=== PATIENT | female | born 1975 | race Caucasian/White ===

== ENCOUNTER 2020-11-05 13:29 | Emergency (ER) | payer SELFPAY ==
[2020-11-05 13:34] VITALS: BP 117/71; PULSE 108; RESP 18; TEMP 36.6; O2SAT 100
[2020-11-05 13:47] VITALS: BP 121/73; PULSE 101; RESP 17; O2SAT 99
--- NOTE | 2020-11-05 15:10 | PC.NURSE ---
provider and RN went to see pt in room, unable to find her left w/o being seen charge lpn aware
== END 2020-11-05 15:10 | disposition left against medical advice (07) ==
DX: S09.90XA Unspecified injury of head, initial encounter (principal)
CPT/HCPCS: 99199

== ENCOUNTER 2020-12-29 21:57 | Emergency (ER) | payer OTHER, SELFPAY ==
--- NOTE | ~2020-12-29 | XR_ITS ---
EXAMINATION: XR chest 1V portable EXAM DATE: 12/30/2020 00:06 INDICATION: Cough, shortness of breath. TECHNIQUE: Portable AP frontal chest x-ray was obtained. There is no prior study for comparison. FINDINGS: Scattered lung granulomata. The lungs are clear. There are no pleural effusions. The card iomediastinal silhouette is within normal limits. There is no pneumothorax suspected. The bones and soft tissues are unremarkable. IMPRESSION: No acute cardiopulmonary findings. Reviewed, dictated and finalized at location A.
[2020-12-29 22:23] VITALS: BP 99/74; PULSE 115; RESP 20; TEMP 36.2; O2SAT 98
[2020-12-29 23:57] VITALS: BP 104/73; PULSE 96; RESP 19; O2SAT 100
[2020-12-30 00:01] VITALS: RESP 20; O2SAT 98
--- NOTE | 2020-12-30 00:04 | ED.GENADULT ---
HPI - General Adult General Chief complaint: Unspecified Stated complaint: fever, covid exposure Time Seen by Provider: 12/29/20 23:45 Source: RN notes reviewed History of Present Illness HPI narrative: Patient presents emergency department from home for COVID-19 exposure. Patient states that both her sister and brother tested positive for Covid 2 days ago. Patient states she is been feeling under the weather for the past week but is over the past several days developed a cough has been nonproductive she denies any measured fever but does report subjective fever does note rhinorrhea denies any chest pain shortness of breath abdominal pain nausea vomiting or any other symptoms Related Data Allergies Allergy/AdvReac Type Severity Reaction Status Date / Time tramadol AdvReac Unknown HALLUCINATI Verified 12/29/20 22:26 ONS varenicline AdvReac Unknown HALLUCINATI Verified 12/29/20 22:26 ONS Review of Systems Review of Systems: Narrative: Gen.: Subjective fever Eyes: Denies eye pain or visual change ENT: Reports rhinorrhea Respiratory: Denies shortness of breath reports cough CV: Denies chest pain or palpitations GI: Denies abdominal pain nausea, emesis or diarrhea Musculoskeletal: Denies back pain or muscle pain Neuro: Denies numbness, tingling, weakness or focal weakness Skin: Denies rash Except as documented, all other systems reviewed and negative PMFSH Past Medical History Medical History (Updated 12/30/20 @ 00:23 by Toño Moreno DO) Lupus Social History Social History Smoking packs per day: 1 Smoking cigarettes per day: 20.0 Smoking status: Current every day smoker Alcohol intake: never Substance use: never Exam Narrative: Exam Narrative: APPEARANCE: No acute distress, nontoxic, resting in bed EYES: EOMI HEENT: Normocephalic, atraumatic, TMs clear bilaterally, nares patent or mucosa moist no erythema exudate posterior pharynx RESPIRATORY: No respiratory distress Clear to auscultation bilaterally with no rhonchi wheezing or rales. CARDIOVASCULAR: Regular rate and rhythm without murmurs rubs or gallops. ABDOMINAL: Soft, nontender, nondistended, no rebound or guarding MUSCULOSKELETAl: Moves all extremities. NEURO: Awake and alert. Following commands, speech normal, no focal deficits SKIN:: Warm, dry. No rashes lesions or abrasions PSYCHIATRIC: Normal affect/mood, Course Course Emergency Course: Discussed with patient results of workup and diagnosis. Discussed need for follow-up with primary care, proper use of medication, and reasons to return to the emergency department. Patient understands and agrees to current treatment plan Vital Signs Vital signs: Vital Signs Temperature 97.1 F L 12/29/20 22:23 Pulse Rate 115 H 12/29/20 22:23 Respiratory Rate 20 12/29/20 22:23 Blood Pressure 99/74 L 12/29/20 22:23 Pulse Oximetry 98 12/29/20 22:23 Temperature 98.0 F 12/30/20 00:16 Pulse Rate 96 12/29/20 23:57 Respiratory Rate 20 12/30/20 00:01 Blood Pressure 104/73 12/29/20 23:57 Pulse Oximetry 98 12/30/20 00:01 Medical Decision Making Vital Signs Vital Signs: Vital Signs Temperature 97.1 F L 12/29/20 22:23 Pulse Rate 115 H 12/29/20 22:23 Respiratory Rate 20 12/29/20 22:23 Blood Pressure 99/74 L 12/29/20 22:23 Pulse Oximetry 98 12/29/20 22:23 Temperature 98.0 F 12/30/20 00:16 Pulse Rate 96 12/29/20 23:57 Respiratory Rate 20 12/30/20 00:01 Blood Pressure 104/73 12/29/20 23:57 Pulse Oximetry 98 12/30/20 00:01 Imaging Data Attestation: I personally reviewed and interpreted this imaging study as follows: My impression: Chest x-ray reviewed by myself shows no acute process ECG Data EKG #1: Interpretation: Sinus rhythm 94, MT is normal, axis normal, QTC is normal, ST segments normal Discharge Plan Discharge Clinical Impression: Contact with and (suspected) exp
--- NOTE | 2020-12-30 00:12 | ECG_ITS ---
Measurements Intervals Holman Rate: 94 P: 66 TN: 154 QRS: 66 QRSD: 80 T: 68 QT: 353 QTc: 443 Interpretive Statements SINUS RHYTHM NORMAL ECG Electronically Signed On 12-30-2020 8:34:29 CDT by Julius Duncan D.O.
[2020-12-30 00:16] VITALS: TEMP 36.7
[2020-12-30 00:55] VITALS: BP 113/74; PULSE 78; RESP 14; O2SAT 98
[2020-12-30 19:42] LABS: SARS-CoV-2 RNA PCR Negative
== END 2020-12-30 00:55 | disposition home or self-care (01) ==
PROVIDERS: Emergency Provider Emergency Medicine; PCP Family Medicine
DX: R05 Cough (principal); J34.89 Other specified disorders of nose and nasal sinuses; Z20.822 Contact with and (suspected) exposure to COVID-19; F17.220 Nicotine dependence, chewing tobacco, uncomplicated
CPT/HCPCS: 71045; 93005; 99283; C9803; U0003; U0005

== ENCOUNTER 2021-04-09 04:20 | Emergency (ER) | payer SELFPAY ==
--- NOTE | ~2021-04-09 | XR_ITS ---
EXAMINATION: XR foot LT min 3V DATE: 04/09/2021 04:41 INDICATION: Left great toe pain. Possible foreign body. TECHNIQUE: Dorsoplantar, two oblique and lateral views of the left foot were obtained. COMPARISON: None. FINDINGS: Alignment is normal. No fracture. Minimal osteoarthritis at the first metatarsophalangeal and the few of the tarsal metatarsal joints. No left ankle joint effusion. Small Achilles calcaneal spur. Soft t issues are unremarkable. No radiopaque foreign bodies. IMPRESSION: 1. No acute osseous abnormality or radiopaque foreign body. Reviewed, dictated and finalized at location A.
[2021-04-09 04:25] VITALS: BP 109/82; PULSE 110; RESP 19; TEMP 36.2; O2SAT 100
[2021-04-09 04:42] VITALS: BP 119/83; PULSE 106; RESP 20; O2SAT 100
--- NOTE | 2021-04-09 04:48 | ED.GENADULT ---
HPI - General Adult General Chief complaint: Extremity Injury, Lower Stated complaint: Pain to left big toe Time Seen by Provider: 04/09/21 04:30 History of Present Illness HPI narrative: Patient is a 45-year-old female presents the emergency department with chief complaint of left great toe pain. The patient reports that yesterday she was walking barefoot and thinks she stepped on something and has pain base of the first digit of her left foot. The patient states is between the metatarsal and the proximal phalanx. Patient reports he feels as though there is a foreign body in her foot as though she stepped on a nail or a screw. Patient reports there is a small puncture wound and noticed that there is some bruising present on the dorsum of her foot. Patient states there is pain with range of motion reports that she cannot put weight on the foot. Patient denies fever denies red streaking. Related Data Allergies Allergy/AdvReac Type Severity Reaction Status Date / Time tramadol AdvReac Unknown HALLUCINATI Verified 04/09/21 04:46 ONS varenicline AdvReac Unknown HALLUCINATI Verified 04/09/21 04:46 [facility] Past Medical History Medical History (Updated 04/09/21 @ 04:52 by Eloy Casillas MD) Lupus Social History Social History Smoking packs per day: 1 Smoking cigarettes per day: 20.0 Smoking status: Current every day smoker Alcohol intake: never Substance use: never Gender identity (if verbalized by the patient): Female Exam Narrative: Exam Narrative: GENERAL: Well-appearing, well-nourished, and in no acute distress. HEAD: Normocephalic, atraumatic. EYES: PERRLA and EOMI. ENT: Nares clear, no rhinorrhea or epistaxis. Mucous membranes moist. NECK: Supple. CHEST: Clear to auscultation. No respiratory distress. HEART: Regular rate and rhythm. No murmur heard. Normal peripheral pulses. ABDOMEN: Soft, nontender, nondistended, normal active bowel sounds. EXTREMITIES: Normal range of motion. No edema. There is a small puncture wound at the base of the left great toe at the MCP joint. There is tenderness to palpation there is no erythema there is no fluctuance SKIN: Warm, dry, no rash. NEURO: No focal deficits. Alert and oriented x3. PSYCH: Normal mood and affect. Course Vital Signs Vital signs: Vital Signs Temperature 36.2 C L 04/09/21 04:25 Pulse Rate 110 H 04/09/21 04:25 Respiratory Rate 19 04/09/21 04:25 Blood Pressure 109/82 04/09/21 04:25 Pulse Oximetry 100 04/09/21 04:25 Temperature 36.2 C L 04/09/21 04:25 Pulse Rate 106 H 04/09/21 04:42 Respiratory Rate 20 04/09/21 04:42 Blood Pressure 119/83 04/09/21 04:42 Pulse Oximetry 100 04/09/21 04:42 Medical Decision Making Vital Signs Vital Signs: Vital Signs Temperature 36.2 C L 04/09/21 04:25 Pulse Rate 110 H 04/09/21 04:25 Respiratory Rate 04/09/21 04:25 Blood Pressure 109/82 04/09/21 04:25 Pulse Oximetry 100 04/09/21 04:25 Temperature 36.2 C L 04/09/21 04:25 Pulse Rate 106 H 04/09/21 04:42 Respiratory Rate 20 04/09/21 04:42 Blood Pressure 119/83 04/09/21 04:42 Pulse Oximetry 100 04/09/21 04:42 Discharge Plan Discharge Clinical Impression: Puncture wound of foot Qualifiers: Encounter type: initial encounter Laterality: left Qualified Code(s): S91.332A - Puncture wound without foreign body, left foot, initial encounter Patient Disposition: Home, Self-Care Condition: Stable Instructions: Antibiotic Form, Soft Tissue Foreign Body (ED), Puncture Wound in the Foot (ED) Additional Instructions: The x-ray did not show any large foreign body. Please follow-up with podiatry for reevaluation and reassessment Prescriptions: New hydrocodone-acetaminophen 5-325 mg tablet 1 tablet PO Q6H PRN (Reason: pain) 3 Days Qty: 12 RF: 0 sulfamethoxazole-trimethoprim [Bactrim DS] 800-160 mg tablet
[2021-04-09] MEDS: HYDROcodone/acetaminophen (*CRX) 5-325 MG TABLET 1 TAB PO (04:59)
[2021-04-09 05:29] VITALS: BP 129/89; PULSE 99; RESP 18; O2SAT 100
== END 2021-04-09 05:30 | disposition home or self-care (01) ==
LOC: ANHED 05:07
PROVIDERS: Emergency Provider Emergency Medicine
DX: S91.332A Puncture wound without foreign body, left foot, initial encounter (principal); F17.210 Nicotine dependence, cigarettes, uncomplicated; W26.9XXA Contact with unspecified sharp object(s), initial encounter
CPT/HCPCS: 73630; 99283; A9270

== ENCOUNTER 2021-05-18 05:42 | Emergency (ER) | payer SELFPAY ==
--- NOTE | ~2021-05-18 | XR_ITS ---
EXAMINATION: XR humerus LT, XR humerus RT DATE: 05/18/2021 06:27 INDICATION: Bilateral biceps pain with injury one year prior on the right. TECHNIQUE: 1. Internal and axillary rotated views of the left humerus were obtained. 2. Internal and external rotated views of the right humerus were obtained. COMPARISON: None. FINDINGS: Alignment is normal at the bilateral shoulders and elbows. No acute fractures identified. Old healed posterolateral left ninth rib fracture. Minimal to mild osteoarthritis at the bilateral elbow and acr omioclavicular joints. Calcified nodule in the right lung consistent with old granulomatous disease. IMPRESSION: 1. No acute osseous abnormality at either the left or right upper arms. Reviewed, dictated and finalized at location A. IMPRESSION: 1. No acute osseous abnormality at either the left or right upper arms.
[2021-05-18 05:46] VITALS: BP 142/101; PULSE 110; RESP 20; TEMP 36.7; O2SAT 100
[2021-05-18] MEDS: HYDROcodone/acetaminophen (*CRX) 5-325 MG TABLET 1 TAB PO (06:12)
[2021-05-18 06:17] LABS: Basophils Absolute Auto 0.1 K/mm3 (0.0-0.1); Basophils Percent Auto 0.7 % (0.2-1.2); Eosinophils Absolute Auto 0.2 K/mm3 (0-0.3); Eosinophils Percent Auto 2.1 % (0-4.4); Hematocrit 40.2 % (37.0-47.0); Hemoglobin 13.6 g/dL (12.0-15.0); Immature Granulocyte Absolute 0.02 K/mm3 (0.00-0.031); Immature Granulocyte Percent A 0.2 % (0-0.5); Lymphocytes Absolute Auto 4.14 K/mm3 (0.9-3.2); Lymphocytes Percent Auto 38.7 % (18.3-44.2); Mean Corpuscular HGB Conc 33.8 g/dl (32-36); Mean Corpuscular Hemoglobin 29.9 pg (26-34); Mean Corpuscular Volume 88.4 fl (80-100); Mean Platelet Volume 10.5 fl (7.4-10.4); Monocytes Absolute Auto 0.6 K/mm3 (0.1-0.6); Monocytes Percent Auto 5.7 % (2.6-8.5); Neutrophils Absolute Auto 5.6 K/mm3 (1.3-6.7); Neutrophils Percent Auto 52.6 % (45.5-73.1); Platelet Count Result 286 k/mm3 (150-375); Red Blood Count 4.55 M/mm3 (4.2-5.4); Red Cell Distribution Width 11.9 % (11.5-14.5); White Blood Count 10.7 K/mm3 (4.5-10.0)
[2021-05-18 06:37] LABS: Alanine Aminotransferase 20 U/L (4-35); Alkaline Phosphatase 135 U/L (38-126); Anion Gap 9 mmol/L (8-16); Aspartate Amino Transferase 20 U/L (14-36); Bilirubin,Total 0.4 mg/dL (0.2-1.3); Blood Urea Nitrogen 11 mg/dL (7-17); Calcium 9.2 mg/dL (8.4-10.2); Carbon Dioxide 25 mmol/L (22-30); Chloride 102 mmol/L (98-107); Creatine Kinase 47 U/L (30-135); Estimated Glomerular Filt Rate > 60; Glucose 345 mg/dL (65-110); Sodium 136 mmol/L (137-145)
[2021-05-18 06:53] VITALS: BP 130/87; PULSE 100; RESP 20; TEMP 36.1; O2SAT 100
--- NOTE | 2021-05-18 06:58 | ED.GENADULT ---
HPI - General Adult General Chief complaint: Extremity Injury, Upper Stated complaint: bilat arm pain Time Seen by Provider: 05/18/21 05:55 Source: RN notes reviewed History of Present Illness HPI narrative: Patient presents to emergency department from home for bilateral biceps pain. Patient states that she ruptured her right biceps tendon approximately 1 year ago but could not afford to get it fixed she states that she has had pain in that right bicep since that time that is worse over the past week states that with this she is also had pain in her left bicep during this time she states that it hurts worse to flex her bilateral biceps she denies any pain in her elbows or shoulder she denies any pain in her forearms or wrists patient denies any new direct trauma or injury she states that she has not taken anything for pain at home she denies any chest pain shortness of breath fevers numbness or tingling of the extremity Related Data Allergies Allergy/AdvReac Type Severity Reaction Status Date / Time tramadol AdvReac Unknown HALLUCINATI Verified 05/18/21 05:50 ONS varenicline AdvReac Unknown HALLUCINATI Verified 05/18/21 05:50 ONS Review of Systems Review of Systems: Gen.: Denies fevers or chills ENT: Denies congestion Respiratory: Denies shortness of breath or cough CV: Denies chest pain or palpitations GI: Denies abdominal pain nausea, emesis Musculoskeletal: See HPI Neuro: Denies numbness, tingling, weakness or focal weakness Skin: Denies rash Except as documented, all other systems reviewed and negative [facility] Past Medical History Medical History (Updated 05/18/21 @ 07:05 by Toño Moreno DO) Diabetes mellitus Lupus Social History Social History Smoking packs per day: 1 Smoking cigarettes per day: 20.0 Smoking status: Current every day smoker Alcohol intake: never Substance use: never Gender identity (if verbalized by the patient): Female Exam Narrative: APPEARANCE: No acute distress, nontoxic, resting in bed EYES: EOMI HEENT: Normocephalic, atraumatic, RESPIRATORY: No respiratory distress Clear to auscultation bilaterally with no rhonchi wheezing or rales. CARDIOVASCULAR: Regular rate and rhythm without murmurs rubs or gallops. ABDOMINAL: Soft, nontender, MUSCULOSKELETAl: Moves all extremities. No clubbing, cyanosis or edema. Bilateral radial pulse 2+, tender to palpation over the right biceps muscle in the region of the biceps tendon pain with flexion of the right bicep there is no tenderness of the right elbow or shoulder there is no overlying erythema or signs of infection, tender palpation of the left bicep worse with flexion no tenderness left shoulder or elbow, no overlying erythema or signs of infection NEURO: Awake and alert. Following commands, speech normal, no focal deficits SKIN:: Warm, dry. No rashes lesions or abrasions PSYCHIATRIC: Normal affect/mood, Const: General: poor hygiene Course Course Emergency Course: I discussed with patient her blood sugar she states she is a diabetic but has not been able to afford her insulin discussed with her I would refer her to primary care physician Discussed with patient results of workup and diagnosis. Discussed need for follow-up with primary care, proper use of medication, and reasons to return to the emergency department. Patient understands and agrees to current treatment plan Vital Signs Vital signs: Vital Signs Temperature 98.0 F 05/18/21 05:46 Pulse Rate 110 H 05/18/21 05:46 Respiratory Rate 20 05/18/21 05:46 Blood Pressure 142/101 H 05/18/21 05:46 Pulse Oximetry 100 05/18/21 05:46 Temperature 97.0 F L 05/18/21 06:53 Pulse Rate 100 05/18/21 06:53 Respiratory Rate 20 05/18/21 06:53 Blood Pressure 130/87 05/18/21 06:53 Pulse Oximetry 100 05/18/21 06:53 Medical Decision Making Vital Signs Vital Signs: Vital Signs Temperature 98
== END 2021-05-18 07:15 | disposition home or self-care (01) ==
PROVIDERS: Emergency Provider Emergency Medicine
DX: S46.212A Strain of muscle, fascia and tendon of other parts of biceps, left arm, initial encounter (principal); S46.211A Strain of muscle, fascia and tendon of other parts of biceps, right arm, initial encounter; E11.9 Type 2 diabetes mellitus without complications; F17.220 Nicotine dependence, chewing tobacco, uncomplicated; X58.XXXA Exposure to other specified factors, initial encounter; Z91.120 Patient's intentional underdosing of medication regimen due to financial hardship; T38.3X6A Underdosing of insulin and oral hypoglycemic [antidiabetic] drugs, initial encounter
CPT/HCPCS: 36415; 73060; 80053; 82550; 85025; 99284; A4565; A9270

== ENCOUNTER 2021-06-09 19:13 | Emergency (ER) | payer SELFPAY ==
[2021-06-09 19:42] VITALS: BP 124/82; PULSE 116; RESP 16; TEMP 37; O2SAT 100
--- NOTE | 2021-06-09 22:00 | PC.NURSE ---
Pt walking out with granddaughter who is also being seen. States she is taking her home to eat dinner then they will be back. Pt told that if they leave they will have to check back in when they come back and will be removed from the list at this time.
== END 2021-06-10 04:24 | disposition left against medical advice (07) ==
DX: R50.9 Fever, unspecified (principal)
CPT/HCPCS: 99199

== ENCOUNTER 2021-07-02 08:02 | Emergency (ER) | payer SELFPAY ==
[2021-07-02 08:20] VITALS: BP 120/76; PULSE 90; RESP 17; TEMP 36.7; O2SAT 99
--- NOTE | 2021-07-02 09:37 | ED.EAR ---
HPI - Ear Problem General Chief complaint: Ear Stated complaint: right ear pain, wants covid test Time Seen by Provider: 07/02/21 09:07 Source: patient Mode of arrival: ambulatory Limitations: no limitations History of Present Illness HPI Narrative: This is a 46-year-old female that presents to the emergency department for right ear pain present over the last couple of weeks. Associated with fevers and drainage from the ear. Denies edema or erythema surrounding the ear. Related Data Allergies Allergy/AdvReac Type Severity Reaction Status Date / Time tramadol AdvReac Unknown HALLUCINATI Verified 07/02/21 08:28 ONS varenicline AdvReac Unknown HALLUCINATI Verified 07/02/21 08:28 ONS Review of Systems Review of Systems: CONSTITUTIONAL: Reports subjective fever ENT: Reports otalgia. All systems reviewed & are unremarkable except as noted in HPI and below PMFSH Past Medical History Medical History (Updated 07/02/21 @ 09:40 by Alexa Chris PA-C) Diabetes mellitus Lupus Social History Social History Smoking packs per day: 1 Smoking cigarettes per day: 20.0 Smoking status: Current every day smoker Alcohol intake: never Substance use: never Gender identity (if verbalized by the patient): Female Exam Narrative: GENERAL: Well-appearing, well-nourished, and in no acute distress. HEAD: Normocephalic, atraumatic. EYES: EOMI. ENT: Bilateral TMs pearly rose non-bulging. Right external auditory canal with mild to moderate erythema and edema. No mastoid erythema, edema or tenderness NECK: Supple. No adenopathy or masses. CHEST: Airway patent HEART: Regular rate EXTREMITIES: Normal range of motion. No edema. SKIN: Warm, dry, no rash. NEURO: No focal deficits. Alert and oriented x3. PSYCH: Normal mood and affect Course Vital Signs Vital signs: Vital Signs Temperature 98.1 F 07/02/21 08:20 Pulse Rate 90 07/02/21 08:20 Respiratory Rate 17 07/02/21 08:20 Blood Pressure 120/76 07/02/21 08:20 Pulse Oximetry 99 07/02/21 08:20 Temperature 98.1 F 07/02/21 08:20 Pulse Rate 90 07/02/21 08:20 Respiratory Rate 17 07/02/21 08:20 Blood Pressure 120/76 07/02/21 08:20 Pulse Oximetry 99 07/02/21 08:20 Medical Decision Making MDM Narrative Medical decision making narrative: Patient presents to the emergency department for otalgia. She is afebrile and nontoxic-appearing. Exam with evidence of otitis externa. Patient will be started on antibiotic otic drops. She is to follow-up with ENT as needed. She was given warnings to return to the ER Vital Signs Vital Signs: Vital Signs Temperature 98.1 F 07/02/21 08:20 Pulse Rate 90 07/02/21 08:20 Respiratory Rate 17 07/02/21 08:20 Blood Pressure 120/76 07/02/21 08:20 Pulse Oximetry 99 07/02/21 08:20 Temperature 98.1 F 07/02/21 08:20 Pulse Rate 90 07/02/21 08:20 Respiratory Rate 17 07/02/21 08:20 Blood Pressure 120/76 07/02/21 08:20 Pulse Oximetry 99 07/02/21 08:20 Critical Care Time Critical Care Time Critical Care Time: No Discharge Plan Discharge Clinical Impression: Otitis externa Qualifiers: Otitis externa type: unspecified type Chronicity: acute Laterality: right Qualified Code(s): H60.501 - Unspecified acute noninfective otitis externa, right ear Patient Disposition: Home, Self-Care Condition: Stable Instructions: Antibiotic Form, Swimmer's Ear (ED) Additional Instructions: Return to the emergency department if you experience fever greater than 101, redness and swelling around your ear, or any other symptoms that are concerning to you Instill 3 drops into the right ear twice daily for 1 week. Tylenol or ibuprofen as needed for discomfort Follow-up with ENT if needed Prescriptions: No Action mupirocin 2 % ointment 1 applic topical BID Qty: 22 RF: 0 ibuprofen [IBU] 600 mg tablet 600 mg
[2021-07-02] MEDS: CIPROFLOXACIN HC OTIC 10 ML 3 DROP RIGHT EAR (10:21)
== END 2021-07-02 10:29 | disposition home or self-care (01) ==
PROVIDERS: Emergency Provider Emergency Medicine
DX: H60.501 Unspecified acute noninfective otitis externa, right ear (principal); E11.9 Type 2 diabetes mellitus without complications
CPT/HCPCS: 99283; A9270